=== PATIENT | male | born 1985 | race Two or more races ===

== ENCOUNTER 2021-05-18 21:23 | Emergency (ER) | payer SELFPAY ==
[~2021-05-18] VITALS: Ht 172.7 cm; Wt 83.9 kg
[2021-05-18] MEDS ORDERED: HYDROcodone-ACET 10/325MG TAB PO ONE (22:30)
[2021-05-18] MEDS ORDERED: KETOROLAC TROMETH 60MG/2ML VIAL IM ONE (22:30)
[2021-05-19 05:20] VITALS: BP 121/78
== END 2021-05-19 21:23 | disposition home or self-care (01) ==
LOC: EDBD 21:23 → ER 21:26
DX: S33.5XXA Sprain of ligaments of lumbar spine, initial encounter (principal); F10.129 Alcohol abuse with intoxication, unspecified; V43.52XA Car driver injured in collision with other type car in traffic accident, initial encounter; Y93.89 Activity, other specified; Y92.410 Unspecified street and highway as the place of occurrence of the external cause; Y99.8 Other external cause status
CPT/HCPCS: 71250; 72131; 73590; 74176